=== PATIENT | male | born 1955 | race Caucasian/White ===

== ENCOUNTER 2024-08-20 07:27 | Day surgery (SDC) | payer OTHER ==
[2024-08-20 08:29] LABS: Absolute Eosinophils 0.4 K/uL (0-0.5); Absolute Lymphocytes (CBC) 1.2 K/uL (0.7-4.9); Absolute Monocytes 0.8 K/uL (0.1-1.3); Absolute Neutrophil 5.4 K/uL (1.8-8.0); Basophils % 0.6 % (0-1.3); Eosinophils % 4.7 % (0-4.4); Hematocrit 38.2 % (39.6-49.0); Hemoglobin 12.6 g/dL (13.6-17.9); Lymphocytes % 15.6 % (15.3-44.8); MCH 26.5 pg (27.0-35.0); MCV 80.3 fL (80-100); MPV 7.9 fL (7.6-11.3); Monocytes % 10.2 % (3.3-12.3); Neutrophils % 68.9 % (41.7-73.7); Nucleated Red Blood Cells % 0.1 % (0-0); Platelets 148 thou/uL (152-406); RBC Red Blood Cell Count 4.76 M/uL (4.33-5.43); Red Cell Distribution Width 18.7 % (12.1-15.2)
[2024-08-20 08:44] LABS: Anion Gap 6.5 mEq/L (5.0-15.0); Potassium 4.5 mEq/L (3.5-5.1)
[2024-08-20 08:45] LABS: PT Prothrombin Time 11.8 SECONDS (10-13.0); PTT, Activated Partial Thromb 31.1 SECONDS (27.2-37.4); Protime INR 1.04
--- NOTE | 2024-08-20 09:06 | RAD REPORT ---
EXAMINATION: TWO VIEW CHEST XR CLINICAL INDICATION: Male, 68 years old. [facility] pre operative. Hypertension TECHNIQUE: 2 view radiographs of the chest were performed. COMPARISON: No prior exam. FINDINGS: The lungs are well inflated and clear apart from mild mid to basal interstitial thickening or scarrin g. No pneumothorax or sizable effusion. The heart is normal in size. Mediastinal contours are unremarkable. Right chest wall pacer in place. IMPRESSION: No acute or significant abnormalities. Findings as above.
[2024-08-20] MEDS ORDERED: dexAMETHasone 10 MG/ML VIAL ONE (09:51)
[2024-08-20] MEDS ORDERED: ONDANSETRON 4 MG/2 ML VIAL ONE (09:51)
[2024-08-20] MEDS ORDERED: KETOROLAC 30 MG/ML INJ ONE (09:51)
[2024-08-20] MEDS ORDERED: propofoL 200 MG/20 ML VIAL IV ONE (09:51)
[2024-08-20] MEDS ORDERED: FENTANYL CITR 100 MCG/2 ML ONE (09:51)
[2024-08-20] MEDS ORDERED: LIDOCAINE 2% MPF 5 ML VIAL ONE (09:52)
[2024-08-20] MEDS ORDERED: ROCURONIUM 50 MG/5 ML VIAL IV ONE (09:52)
[2024-08-20] MEDS ORDERED: MIDAZOLAM HCL 2 MG/2 ML INJ ONE (09:52)
[2024-08-20] MEDS: Ringers Lactate 1,000 ML IV ONE (10:09)
[2024-08-20] MEDS: CEFAZOLIN SODIUM 1 GM/VIAL ONE (11:00)
[2024-08-20] MEDS ORDERED: CEFAZOLIN SODIUM 1 GM/VIAL ONE (12:06)
[2024-08-20] MEDS ORDERED: NS 0.9% VIAL 10 ML ONE (12:06)
[2024-08-20] MEDS ORDERED: Ringers Lactate 1,000 ML IV ONE (12:22)
--- NOTE | 2024-08-20 13:25 | P.BOP ---
Preoperative diagnosis: incarcerated large recurrent left inguinal hernia Postoperative diagnosis: same Primary procedure: 1. Open repair of incarcerated large recurrent left inguinal hernia Secondary procedure: 2. Previous inguinal hernia mesh removal Estimated blood loss: <30cc Specimen: sac. mesh Findings: mesh Anesthesia: General Complications: None Implants: mesh plug and sheet. Transferred to: Recovery Room Condition: Good
[2024-08-20] MEDS: FENTANYL CITR 100 MCG/2 ML ONE (13:45)
[2024-08-20] MEDS: HYDROCODONE/APAP 7.5/325 MG TAB ONE (15:02)
[2024-08-20 16:01] VITALS: BP 137/90; TEMP 98; O2SAT 93
== END 2024-08-20 18:05 | disposition home or self-care (01) ==
LOC: OR 07:27
PROVIDERS: ATTEND Surgery
PROC: 0YQ60ZZ Repair Left Inguinal Region, Open Approach (ICD-10-PCS; principal; 2024-08-20 11:00)
DX: K40.91 Unilateral inguinal hernia, without obstruction or gangrene, recurrent (principal); I10 Essential (primary) hypertension; J44.9 Chronic obstructive pulmonary disease, unspecified; I25.2 Old myocardial infarction
CPT/HCPCS: 93005; 85025; 80048; 36415; 85610; 88302; 85730; 71046; 49521; A4216; J2704; J2003; J3010 ×2; J1100; J2405; J7120 ×2; J0690; J2250

== ENCOUNTER 2024-09-05 22:12 | Inpatient (IN) | payer OTHER ==
[2024-09-05] MEDS ORDERED: ACETAMINOPHEN 325 MG TABLET PO PRN (22:17)
[2024-09-05] MEDS ORDERED: ONDANSETRON 4 MG/2 ML VIAL IV PRN (22:17)
--- NOTE | 2024-09-05 22:17 | P.HP ---
Certification for Inpatient Patient admitted to: Observation With expected LOS: <2 Midnights Practitioner: I am a practitioner with admitting privileges, knowledge of patient current condition, hospital course, and medical plan of care. Services: Services provided to patient in accordance with Admission requirements found in Title 42 Section 412.3 of the Code of Federal Regulations Patient History Date of Service: 09/06/24 Reason for admission: swelling inguinal region History of Present Illness: 68 yo male with past medical history of asthma, COPD, hypertension, hyperlipi demia, CHF, paroxysmal A-fib, status post AICD, anxiety, depression, who had a recent inguinal hernia surgery on the left side by Dr. Harden came in with swelling and pain in the left inguinal region. Denies any fever or chills. No nausea vomiting or diarrhea. Patient also found to be in A-fib with RVR and was on amiodarone drip at [facility]. Amiodarone drip was subsequently discontinued to with p.o. and sent over here for further management and surgical consult. At the time of interview patient is not having much pain in the left inguinal region. The swelling is better. Patient is being admitted for observation for surgical consult Allergies No Known Allergies Allergy (Unverified 08/20/24 08:17) Home medications list reviewed: Yes Home Medications: Albuterol Sulfate [Proair Digihaler] 2 puff PO PRN 08/20/24 Aspirin [Aspirin EC 81 MG] 1 tab PO DAILY 08/20/24 Atorvastatin Calcium 1 tab PO BEDTIME 08/20/24 Budesonide/Glycopyr/Formoterol [Breztri Aerosphere Inhaler] 2 puff PO PRN 08/20/24 Celecoxib [Celebrex] 100 mg PO BID 08/20/24 Cetirizine HCl [All Day Allergy Relief] 10 mg PO DAILY 08/20/24 Famotidine 1 tab PO BEDTIME 08/20/24 Fluoxetine HCl 10 mg PO BEDTIME 08/20/24 Metoprolol Tartrate [Lopressor*] 12.5 mg PO BID 08/20/24 Tamsulosin HCl [Flomax] 1 tab PO DAILY 08/20/24 Tramadol HCl [Ultram] 50 mg PO PRN PRN 08/20/24 Vit D3/Folic/B6/B12/Acetylcyst [Mincora Tablet] 1 each PO DAILY 08/20/24 lisinopriL [Lisinopril] 5 mg PO DAILY 08/20/24 Benzonatate [Tessalon Perle] 100 mg PO TID 09/05/24 OLANZapine [Zyprexa] 2.5 mg PO BEDTIME 09/05/24 - Past Medical/Surgical History Past Medical History: Reviewed- Non-Contributory -: Asthma, COPD, hypertension, hyperlipidemia -: Depression, anxiety Past Surgical History: Reviewed- Non-Contributory -: Inguinal hernia repair - Family History Family History: Reviewed- Non-Contributory - Social History Smoking Status: Former smoker Review of Systems 10-point ROS is otherwise unremarkable Physical Examination - Vital Signs Temperature: 97.8 F Blood Pressure: 138/72 Pulse: 76 Respirations: 18 Pulse Ox (%): 95 - Physical Exam General: Alert, Oriented x2, Mild distress HEENT: Atraumatic, Normocephalic Neck: Supple Respiratory: Clear to auscultation bilaterally, Normal air movement Cardiovascular: Regular rate/rhythm, Normal S1 S2 Capillary refill: <2 Seconds Gastrointestinal: Soft and benign, W/out hepatosplenomegaly, Tenderness Musculoskeletal: No clubbing Integumentary: No rashes Neurological: Other (Alert awake nonfocal) Lymphatics: No axilla or inguinal lymphadenopathy Assessment and Plan - Plan Seroma left inguinal area Status post single hernia repair 2 weeks ago Will consult Dr. Harden Started on empiric antibiotic Will stop the antibiotic if no leukocytosis Pain control History of A-fib with RVR Was on amiodarone drip at [facility] Will start on p.o. Amiodarone Hypertension Antihypertensives titrated Continue home medications and titrate as needed Hyperlipidemia Continue statin COPD Continue home medications and titrate as needed Depression/anxiety Continue home medications and titrate as needed GI/DVT prophylaxis Advanced directive full code Discharge Plan: Home Plan to discharge in: 48 Hours - Advance Directives Does patient have a Living Will: No Does patient have a Durable POA for Healthcare: No - Code Status/Comfort Care Code Status: Full Code Time Spent Managing Pts Care (In Minutes): 48
[2024-09-05] MEDS ORDERED: MORPHINE 2 MG/ML SYR IV PRN (22:21)
[2024-09-05] MEDS ORDERED: LORazepam 2 MG/ML VIAL IV PRN (22:44)
[2024-09-05] MEDS: OLANZapine 2.5 MG TAB PO SCH (23:14)
[2024-09-05] MEDS: HYDROCODONE/APAP 5/325 MG TAB PO PRN (23:14)
[2024-09-05] MEDS: AMIODARONE HCL 200 MG TAB PO SCH (23:14)
[2024-09-06 00:17] VITALS: BMI 29.0
[2024-09-06] MEDS ORDERED: TRAMADOL HCL 50 MG TAB PO PRN ×3 (01:27→03:55)
[2024-09-06 07:47] LABS: Absolute Eosinophils 0.2 K/uL (0-0.5); Absolute Lymphocytes (CBC) 0.4 K/uL (0.7-4.9); Absolute Monocytes 0.5 K/uL (0.1-1.3); Absolute Neutrophil 2.5 K/uL (1.8-8.0); Basophils % 0.5 % (0-1.3); Eosinophils % 4.2 % (0-4.4); Hematocrit 25.8 % (39.6-49.0); Hemoglobin 8.7 g/dL (13.6-17.9); Lymphocytes % 11.9 % (15.3-44.8); MCH 26.8 pg (27.0-35.0); MCHC 33.8 g/dL (32.0-36.0); MCV 79.4 fL (80-100); MPV 7.2 fL (7.6-11.3); Monocytes % 14.5 % (3.3-12.3); Neutrophils % 68.9 % (41.7-73.7); Nucleated Red Blood Cells % 0.1 % (0-0); Platelets 162 thou/uL (152-406); RBC Red Blood Cell Count 3.25 M/uL (4.33-5.43); Red Cell Distribution Width 18.6 % (12.1-15.2)
[2024-09-06 08:00] LABS: Albumin 2.2 g/dL (3.4-5.0); Albumin/Globulin Ratio 0.6 (1.1-1.8); Anion Gap 10.1 mEq/L (5.0-15.0); Bilirubin Total 0.8 mg/dL (0.2-1.0); Globulin 3.9 g/dL (2.3-3.5); Potassium 4.1 mEq/L (3.5-5.1); Protein, Total 6.1 g/dL (6.4-8.2)
[2024-09-06] MEDS: ACETYLCYST PO SCH (09:00)
[2024-09-06] MEDS: FOLIC PO SCH (09:00)
[2024-09-06] MEDS: VIT D3 PO SCH (09:00)
[2024-09-06] MEDS: B6 PO SCH (09:00)
[2024-09-06] MEDS: B12 PO SCH (09:00)
[2024-09-06] MEDS: ASPIRIN EC 81 MG TAB PO SCH (09:23)
[2024-09-06] MEDS: TAMSULOSIN 0.4 MG SR CAP PO SCH (09:24)
[2024-09-06] MEDS: CELECOXIB 100 MG CAPSULE PO SCH (09:24)
[2024-09-06] MEDS: lisinopriL 10 MG TAB PO SCH (09:24)
[2024-09-06] MEDS: METOPROLOL TAR 25 MG TAB PO SCH (09:24)
[2024-09-06] MEDS: METRONIDAZOLE 500mg IVPB 500 MG/100 ML BAG IV SCH (11:00)
[2024-09-06] MEDS: CIPROFLOXACIN 400mg IV 400 MG/200 ML BAG IV SCH (11:01)
[2024-09-06] MEDS: MUPIROCIN 2% OINT 22GM TUBE TOP ONE (12:00)
--- NOTE | 2024-09-06 14:00 | CON ---
Date of Consultation: 09/06/2024 History Of Present Illness: Mr. Roa is a 68-year-old patient known by the surgical service for hernia repair several weeks ago. He was doing okay, was followed up eventually in the office and we nt to his [facility] and he says that he was getting a shock in his chest. They eventually found o ut because he has a defibrillator, he got shocked, went on for about 10 times. When EMS went there, they found him in [facility] and then they brought him to the [facility]. They also gave him anticoa gulation obviously for his history, but then during the workup, they did a CAT scan of the abdomen an d pelvis and then found some fluid collection in the scrotum. We expect that postoperatively special ly somebody who has the scrotal sac, the size of a watermelon and when everything got reduced, there was fluid collection in that area. They were not sure. They have no surgeon. They did not know wha t they were dealing with and they preferred to have the patient come to this institution for evaluati on and patient was transferred. He sometimes behaves in a strange way. He does whatever he wants to . He moves whatever he wants to. He is not the best compliant person. He has an issue with hygiene too, and he was found also just down the floor, just naked just because he wanted it. We talked to him about the importance of compliance. He is doing great. He is tolerating diet. He is eating. T here is no fever. I still went ahead and come to explore the area of scrotum, which is a hematoma. He has bruises from the large gigantic hernia he had there. We squeezed this area, we opened the wou nd little bit just to make sure that there was no infection and there was none. There is not even a chance of purulent discharge. There is no cellulitis present. There is an old clot, hematoma that w as squeezed out since he is not using his Jobst straps as explained after the surgery. I doubt that he will continue with the Jobst straps, but we advised him the importance of being compliant. If he is going to be moving and walking, he have some support. The scrotum will take several months before we even reach an area of normal-size ever since patient has a sizable watermelon distention there fo r years. At this moment, he is not bleeding. There is no pulsatile lesion. There is nothing in yovany t region after exploration. Allergies: GREEN BEANS. Medications: Include aspirin, , Zyrtec, Prozac, Lopressor, Zyprexa. He believe he takes o ther blood thinners. He is not sure of it at this moment. He also takes chronic Flomax and tramadol . He does not smoke. He does not drink alcohol. Review of Systems: No shortness of breath. No chest pain. No fever. He only have a recollection of his shocks at the [facility] from his defibrillator. Physical Examination: Chest: Clear. Abdomen: Soft and depressible. No guarding or rebound or peritoneal signs. Skin: Incisions are intact. No purulent discharge and when we explored the area, little bit of the area just to get the fluid collection and just old blood. The area was a clean. Joseph removed. N eosporin placed over the area where we removed joseph and then a gauze. No active bleeding. Extrem ities: Good capillary refill. Laboratory Data: Blood work reviewed. No leukocytosis. Plan: Continue with current treatment. Since we opened the area, even though it was done in sterile condition, we are going to continue with the antibiotics. We are going to once again find him the J obst straps to make sure he is walking like he walked, but at the same time not injuring the area. Eric sheridan is very active. He does knees. He moved around, which I do not consider that a bad thi ng except he just has to be careful with heavy lifting and use Jobst straps. He is happy. He is com fortable, is very cooperative today, so we are going to keep under observation for the next 24-48 jose rs and then if no more arrhythmias or any other problems, then we will eventually send him home. Mart fernández with diet. HM/MODL Voice ID: [id number] Report ID: [id number]
[2024-09-06] MEDS: FLUOXETINE 10 MG CAP PO SCH (21:05)
[2024-09-06] MEDS: FAMOTIDINE 20 MG TAB PO SCH (21:05)
[2024-09-06] MEDS: ATORVASTATIN 20 MG TAB PO SCH (21:07)
--- NOTE | 2024-09-07 05:20 | P.PN ---
Subjective Date of Service: 09/06/24 Patient clinically doing well with no new complaints. Clinically feels much better. Spoke with general surgery. No surgical intervention at this time. Monitor overnight and plan to go back to nursing facility over the next 24 to 48 hours. Review of Systems 10-point ROS is otherwise unremarkable Physical Examination - Vital Signs Temperature: 97.7 F Blood Pressure: 99/57 Pulse: 69 Respirations: 18 Pulse Ox (%): 98 - Physical Exam General: Alert, In no apparent distress, Oriented x3 Respiratory: Clear to auscultation bilaterally, Normal air movement Cardiovascular: Regular rate/rhythm, Normal S1 S2 Gastrointestinal: Normal bowel sounds, Soft and benign, Non-distended, No tenderness, No rebound, No guarding Neurological: Other (Generalized weakness) External genitalia: Other (Minimal swelling) - Studies Laboratory Data (last 24 hrs) 09/06/24 09/05/24 09/05/24 05:00 07:23 07:23 WBC 3.70 L Hgb 8.7 L Hct 25.8 L Plt Count 162 Sodium Cancelled 134 L Potassium Cancelled 4.1 BUN Cancelled 13 Creatinine Cancelled 0.76 Glucose Cancelled 85 Total Bilirubin 0.8 AST 57 H ALT 25 Alkaline Phosphatase 52 Medications List Reviewed: Yes Assessment & Plan - Problems (Diagnosis) (1) Status post inguinal hernia repair Current Visit: Yes Status: Acute (2) Atrial fibrillation with RVR Current Visit: Yes Status: Acute (3) Atrial fibrillation status post cardioversion Current Visit: Yes Status: Acute (4) Hypertension Current Visit: Yes Status: Acute (5) Hyperlipidemia Current Visit: Yes Status: Acute (6) COPD (chronic obstructive pulmonary disease) Current Visit: Yes Status: Acute - Plan Plan: 1. Patient status post inguinal hernia repair; there was concern for a hematoma but there is no signs of infection. No signs of a extensive bleeding. Continue with supportive care and will continue with wound care. 2. Atrial fibrillation with rapid ventricular spots; continue with medication for rate control with amiodarone and anticoagulation. Patient is status post cardioversion as he has a defibrillator in place. 3. History of hypertension; resume antihypertensives 4. History of dyslipidemia; continue with statin therapy 5. History of COPD; continue with inhaler therapy Discharge Plan: Home Plan to discharge in: Greater than 2 days - Advance Directives Does patient have a Living Will: No Does patient have a Durable POA for Healthcare: No - Code Status/Comfort Care Code Status: Full Code Critical Care: No Time Spent Managing PTS Care (In Minutes): 35
--- NOTE | 2024-09-07 05:21 | P.PN ---
Date of Service: 09/07/24 Subjective Physical Examination - Vital Signs Reviewed - Physical Exam General: Alert, In no apparent distress, Oriented x3 Respiratory: Clear to auscultation bilaterally, Normal air movement Cardiovascular: Regular rate/rhythm, Normal S1 S2 Gastrointestinal: Normal bowel sounds, Soft and benign, Non-distended, No tenderness, No rebound, No guarding Neurological: Other (Generalized weakness) External genitalia: Other (Minimal swelling) Assessment & Plan - Problems (Diagnosis) (1) Status post inguinal hernia repair Current Visit: Yes Status: Acute (2) Atrial fibrillation with RVR Current Visit: Yes Status: Acute (3) Atrial fibrillation status post cardioversion Current Visit: Yes Status: Acute (4) Hypertension Current Visit: Yes Status: Acute (5) Hyperlipidemia Current Visit: Yes Status: Acute (6) COPD (chronic obstructive pulmonary disease) Current Visit: Yes Status: Acute - Plan Continue with plan of care as mentioned below: 1. Patient status post inguinal hernia repair; there was concern for a hematoma but there is no signs of infection. No signs of a extensive bleeding. Continue with supportive care and will continue with wound care. 2. Atrial fibrillation with rapid ventricular spots; continue with medication for rate control with amiodarone and anticoagulation. Patient is status post cardioversion as he has a defibrillator in place. 3. History of hypertension; resume antihypertensives 4. History of dyslipidemia; continue with statin therapy 5. History of COPD; continue with inhaler therapy Discharge Plan: Home Plan to discharge in: Greater than 2 days - Advance Directives Does patient have a Living Will: No Does patient have a Durable POA for Healthcare: No - Code Status/Comfort Care Code Status: Full Code Critical Care: No Time Spent Managing PTS Care (In Minutes): 30
[2024-09-07 06:46] LABS: Absolute Eosinophils 0.2 K/uL (0-0.5); Absolute Lymphocytes (CBC) 0.4 K/uL (0.7-4.9); Absolute Monocytes 0.4 K/uL (0.1-1.3); Absolute Neutrophil 1.8 K/uL (1.8-8.0); Basophils % 0.9 % (0-1.3); Eosinophils % 6.4 % (0-4.4); Hematocrit 25.9 % (39.6-49.0); Hemoglobin 8.7 g/dL (13.6-17.9); Lymphocytes % 15.4 % (15.3-44.8); MCH 26.7 pg (27.0-35.0); MCHC 33.6 g/dL (32.0-36.0); MCV 79.4 fL (80-100); MPV 7.1 fL (7.6-11.3); Monocytes % 15.1 % (3.3-12.3); Neutrophils % 62.2 % (41.7-73.7); Nucleated Red Blood Cells % 0.1 % (0-0); Percent Reticulocyte Count 1.53 % (0.4-2.05); Platelets 229 thou/uL (152-406); RBC Red Blood Cell Count 3.26 M/uL (4.33-5.43); Red Cell Distribution Width 18.7 % (12.1-15.2)
[2024-09-07 08:06] LABS: Albumin 2.1 g/dL (3.4-5.0); Albumin/Globulin Ratio 0.5 (1.1-1.8); Bilirubin Total 0.5 mg/dL (0.2-1.0); Globulin 4.2 g/dL (2.3-3.5); Magnesium 1.8 mg/dL (1.6-2.4); Protein, Total 6.3 g/dL (6.4-8.2)
[2024-09-07 12:17] VITALS: O2SAT 95
--- NOTE | 2024-09-07 20:51 | PN ---
Date of Progress Note: 09/07/2024 Diagnosis: History of hematoma, left groin. Subjective: This is the case of a 68-year-old patient who had left inguinal hernia repair several we eks ago. He is doing well. Follow up in my office. He has been doing a lot of heavy lifting. He w as coughing, sneezing, and felt a little bit of a break on the inguinal region developed by bruising. Patient found to have a hematoma. There is a question about a hydrocele, but we noticed there is a hematoma in that region and he is doing better. We compressed the area and then after that put some gauze and has been watching him for the last 48 hours. He is doing great. Tolerating diet. No abd ominal pain. Objective: Chest: Clear. Abdomen: Soft and depressible. Inguinal region, there had some black blood oozing previously. The swelling is coming down. The scrotum is coming down. He is trying to not to do much, trying to minimize his coughing and trying not to do heavy lifting. He is very active. He would like to move around and get out of bed. He just have to be gentle with that. There is no purulent discharge. No active red blood bleeding, just old clot in that region. No evidence of infection. Laboratory Data: The hemoglobin has been stable over the last 2 days with a hemoglobin of 8.7, 2 day s ago, and it is still 8.7. Plan: He wants to go home tomorrow. We have to advise him about using the scrotal support, every ti me I go there, he removed it, but we will see if in the next 24 hours, we can once again make him und erstand the importance of being compliant, not doing heavy lifting, not squatting too much, let that area get stable and if we could see that he can comply with that, we may consider sending him home. He was found naked on the first floor yesterday a day before, but he does not mean it, just basically he is very spontaneous, not being aggressive, treating nurses good for the last 24 hours and so at least this part, he is understanding . He is trying to be compliant. JUAN CARLOS/MODL Voice ID: [id number] Report ID: [id number]
[2024-09-08 07:06] LABS: Absolute Eosinophils 0.3 K/uL (0-0.5); Absolute Lymphocytes (CBC) 0.5 K/uL (0.7-4.9); Absolute Monocytes 0.3 K/uL (0.1-1.3); Absolute Neutrophil 1.6 K/uL (1.8-8.0); Basophils % 0.9 % (0-1.3); Eosinophils % 9.6 % (0-4.4); Hematocrit 25.9 % (39.6-49.0); Hemoglobin 8.8 g/dL (13.6-17.9); Lymphocytes % 18.5 % (15.3-44.8); MCH 26.7 pg (27.0-35.0); MCHC 33.9 g/dL (32.0-36.0); MCV 78.8 fL (80-100); MPV 6.8 fL (7.6-11.3); Monocytes % 10.8 % (3.3-12.3); Neutrophils % 60.2 % (41.7-73.7); Nucleated Red Blood Cells % 0.2 % (0-0); Platelets 261 thou/uL (152-406); RBC Red Blood Cell Count 3.29 M/uL (4.33-5.43); Red Cell Distribution Width 18.4 % (12.1-15.2)
[2024-09-08 07:31] LABS: Albumin 2.1 g/dL (3.4-5.0); Albumin/Globulin Ratio 0.5 (1.1-1.8); Anion Gap 8.8 mEq/L (5.0-15.0); Bilirubin Total 0.3 mg/dL (0.2-1.0); Globulin 3.9 g/dL (2.3-3.5); Magnesium 1.6 mg/dL (1.6-2.4); Potassium 3.8 mEq/L (3.5-5.1)
[2024-09-08] MEDS: MUPIROCIN 2% OINT 22GM TUBE TOP SCH (09:00)
[2024-09-08 09:21] LABS: Blood Morphology Comment NOT SEEN (NOT SEEN); Platelet Estimate ADEQ; White Blood Cell Scan OK (OK)
--- NOTE | 2024-09-08 09:33 | P.DS ---
Discharge Date: 09/08/24 Disposition: TRANSFER TO LONG-TERM Discharge Condition: GOOD Reason for Admission: swelling inguinal region - Problems (1) Status post inguinal hernia repair Current Visit: Yes Status: Acute (2) Atrial fibrillation with RVR Current Visit: Yes Status: Acute (3) Atrial fibrillation status post cardioversion Current Visit: Yes Status: Acute (4) Hypertension Current Visit: Yes Status: Acute (5) Hyperlipidemia Current Visit: Yes Status: Acute (6) COPD (chronic obstructive pulmonary disease) Current Visit: Yes Status: Acute Brief History of Present Illness: Pt is a 68 yo male with past medical history of asthma, COPD, hypertension, hyperlipidemia, CHF, paroxysmal A-fib, status post AICD, anxiety, depression, who had a recent inguinal hernia surgery on the left side by Dr. Harden came in with swelling and pain in the left inguinal region. Denies any fever or chills. No nausea vomiting or diarrhea. Patient also found to be in A-fib with RVR and was on amiodarone drip at [facility]. Amiodarone drip was subsequently discontinued to with p.o. and sent over here for further management and surgical consult. At the time of interview patient is not having much pain in the left inguinal region. The swelling is better. Patient is being admitted for observation for surgical consult Hospital Course: Patient was seen by general surgery. Hematoma was evacuated at bedside. Continue with wound care. Patient is stable for discharge back to the nursing facility. Patient did have cardioversion at [facility] by his defibrillator. Patient was started on amiodarone. No arrhythmias while on telemetry here in the hospital. Patient will start anticoagulation once the wound is healed which should be in follow-up with cardiology.. In the meantime we will keep aspirin for stroke prophylaxis risks. Patient needs to follow-up with cardiology in 1 to 2 weeks and by that time the hematoma should be completely healed and Eliquis can be resumed. Patient should take Eliquis at 5 mg twice a day would be the recommendation which patient needs to start in 2 weeks. Vital Signs/Physical Exam: Temp Pulse Resp BP Pulse Ox 98.2 F 68 20 131/61 95 09/08/24 08:00 09/08/24 08:00 09/08/24 08:00 09/08/24 08:00 09/08/24 08:00 General: Alert, In no apparent distress, Oriented x3 Laboratory Data at Discharge: WBC 2.70 thou/uL (4.3-10.9) L 09/08/24 06:56 Hgb 8.8 g/dL (13.6-17.9) L 09/08/24 06:56 Hct 25.9 % (39.6-49.0) L 09/08/24 06:56 Plt Count 261 thou/uL (152-406) 09/08/24 06:56 Sodium 139 mEq/L (136-145) 09/08/24 06:56 Potassium 3.8 mEq/L (3.5-5.1) 09/08/24 06:56 BUN 10 mg/dL (7-18) 09/08/24 06:56 Creatinine 0.73 mg/dL (0.70-1.30) 09/08/24 06:56 Glucose 184 mg/dL (74-106) H 09/08/24 06:56 Magnesium 1.6 mg/dL (1.6-2.4) 09/08/24 06:56 Total Bilirubin 0.3 mg/dL (0.2-1.0) 09/08/24 06:56 AST 55 U/L (15-37) H 09/08/24 06:56 ALT 40 U/L (16-61) 09/08/24 06:56 Alkaline Phosphatase 69 U/L (45-117) 09/08/24 06:56 Home Medications: Albuterol Sulfate [Proair Digihaler] 2 puff PO PRN 08/20/24 Aspirin [Aspirin EC 81 MG] 1 tab PO DAILY 08/20/24 Atorvastatin Calcium 1 tab PO BEDTIME 08/20/24 Budesonide/Glycopyr/Formoterol [Breztri Aerosphere Inhaler] 2 puff PO PRN 08/20/24 Celecoxib [Celebrex] 100 mg PO BID 08/20/24 Cetirizine HCl [All Day Allergy Relief] 10 mg PO DAILY 08/20/24 Famotidine 1 tab PO BEDTIME 08/20/24 Fluoxetine HCl 10 mg PO BEDTIME 08/20/24 Metoprolol Tartrate [Lopressor*] 12.5 mg PO BID 08/20/24 Tamsulosin HCl [Flomax] 1 tab PO DAILY 08/20/24 Tramadol HCl [Ultram] 50 mg PO Q6HR PRN 08/20/24 Vit D3/Folic/B6/B12/Acetylcyst [Mincora Tablet] 1 each PO DAILY 08/20/24 lisinopriL [Lisinopril] 5 mg PO DAILY 08/20/24 Benzonatate [Tessalon Perle*] 100 mg PO TID 09/05/24 OLANZapine [Zyprexa*] 2.5 mg PO BEDTIME 09/05/24 Amiodarone HCl [Cordarone*] 200 mg PO BID #60 tab 09/08/24 Apixaban [Eliquis] 2.5 mg PO BID #60 tablet 09/08/24 Hydrocodone 5/APAP 325 [Vallecitos 5/325*] 1 tab PO Q8HP PRN #20 tab 09/08/24 Mupirocin Oint [Bactroban 2% Ointment*] 1 appl TOP TID #1 tube 09/08/24 New Medications: Mupirocin Oint [Bactroban 2% Ointment*] 1 appl TOP TID #1 tube Amiodarone HCl [Cordarone*] 200 mg PO BID #60 tab Apixaban [Eliquis] 2.5 mg PO BID #60 tablet Hydrocodone 5/APAP 325 [Vallecitos 5/325*] 1 tab PO Q8HP PRN #20 tab PRN Reason: Pain scale 7 (Moderate) Physician Discharge Instructions: -DC IV and DC back to custodial -Follow-up with PCP in 1 to 2 weeks -Follow-up with Surgery, Dr. Harden, in 1 to 2 weeks -Please call Dr. Castellanos at [phone] if any questions regarding hospital stay -Please call nursing station at [phone] if any nursing or medication questions -Return to the emergency room if symptoms worsen *Patient is advised to start Eliquis 2.5 mg twice a day after September 23, 2024 Diet: AHA Activity: Fall precautions Followup: Serafin Harden MD [ACTIVE - CAN ADMIT] - 1-2 Weeks David Price DO [Primary Care Provider] - 1-2 Weeks
[2024-09-08] MEDS ORDERED: SOD FERRIC GLUC COMPLX/SUCROSE 125 MG in NA CHLORIDE 0.9% 100 ML IV SCH (10:00)
[2024-09-08 12:04] VITALS: BP 116/66; TEMP 97.9
--- NOTE | 2024-09-08 17:07 | PN ---
Date of Progress Note: 09/08/2024 Reason For Service: Hematoma of the left groin area. Indications: This is a case of a 68-year-old patient several weeks ago, they had a ventral hernia re paired uneventfully. Patient is doing well. Follow up as an outpatient. Then, he was doing some he emily lifting and developed a bruise over the left inguinal region, what we call a hematoma at least in this institution since it was questionable how it was before. Patient was transferred from another institution to he is really active. He admits that he is moving around, which is great, but at the same time, he was advised the importance of being gentle with his body. On top of that 1, he does not take a shower everyday, so we have sometimes a lot of urine accumulated in that area, so metimes even stools. Now, we find out the knee that hematoma out of through that tiny in cision and exploration. He is afraid he is moving, he is active. The area shows just minimal bruise s. No purulent discharge. No active bleeding. He is going to be sent home today. We are going to leave that. We are not going to put in stitch in that tiny incision direct created, which means that we have to be careful with bacterial contamination, so we are using the Bactroban. We asked him man y times, please take a shower daily, keep the area clean. If we see urine, he has notified or stool to the area, more if we see contamination. It is imperative that we keep this area clean to avoid any bacteria going in that incision and creating an infection. We going to cover him with t he Bactroban until we see him in the office next Sunday. JUAN CARLOS/RENATEL Voice ID: [id number] Report ID: [id number]
== END 2024-09-08 12:56 | DRG 921 ==
LOC: 2ND 22:12
PROVIDERS: ADMIT Family Medicine; ATTEND Hospitalist
DX: K91.870 Postprocedural hematoma of a digestive system organ or structure following a digestive system procedure (principal); I10 Essential (primary) hypertension; E78.5 Hyperlipidemia, unspecified; F32.A Depression, unspecified; F41.9 Anxiety disorder, unspecified; I48.0 Paroxysmal atrial fibrillation; J44.9 Chronic obstructive pulmonary disease, unspecified; R10.30 Lower abdominal pain, unspecified; Z79.82 Long term (current) use of aspirin; Z79.899 Other long term (current) drug therapy; Z87.891 Personal history of nicotine dependence; Z95.810 Presence of automatic (implantable) cardiac defibrillator
CPT/HCPCS: 36415; 80053; 82607; 83540; 83735; 84145; 85025; 85044; J0744; J2916